=== PATIENT | male | born 1950 | race Caucasian/White ===

== ENCOUNTER 2019-09-20 10:41 | Day surgery (SDC) | payer OTHER ==
[2019-09-19 09:52] VITALS: BMI 26.6
[2019-09-20] MEDS ORDERED: Dexamethasone 20 MG/5 ML VIAL ONE (11:17)
[2019-09-20] MEDS ORDERED: Rocuronium Bromide 10 MG/ML (10ML VIAL) ONE (11:17)
[2019-09-20] MEDS ORDERED: Ondansetron PF 4 MG/2 ML Vial ONE (11:17)
[2019-09-20] MEDS ORDERED: PROPOFOL 200 MG/20 ML VIAL ONE (11:17)
[2019-09-20] MEDS ORDERED: Lidocaine 1% PF 5 ML VIAL ONE (11:17)
[2019-09-20] MEDS ORDERED: AFRIN NASAL MIST 15 ML BOT ONE ×2 (12:07→13:27)
[2019-09-20 12:58] LABS: Hemoglobin 14.9 g/dL (14.0-18.0)
[2019-09-20 13:17] LABS: Anion Gap 8 mmol/L (10-20); BUN (Urea Nitrogen) 30 mg/dL (8.4-25.7); Calc. Creatinine Clearance 96 mL/min (70-130); Calcium 9.1 mg/dL (7.8-10.44); Carbon Dioxide 28 mmol/L (23-31); Chloride 108 mmol/L (98-107); Estimated GFR-MDRD Greater than 90; Glucose 93 mg/dL (80-115); Potassium 3.8 mmol/L (3.5-5.1); Sodium 140 mmol/L (136-145)
[2019-09-20] MEDS ORDERED: Lidocaine 1% w/Epinephrine 1:100K 20 ML VIAL ONE (13:27)
[2019-09-20] MEDS ORDERED: Bacitracin Zinc Ointment 30 gm TUBE ONE (13:27)
[2019-09-20] MEDS ORDERED: Fentanyl 100 MCG/2 ML VIAL ONE (13:40)
--- NOTE | 2019-09-21 09:36 | OP ---
DATE OF PROCEDURE: 09/20/2019 PREOPERATIVE DIAGNOSES: 1. Chronic rhinosinusitis. 2. Nasal septal deviation. 3. Bilateral inferior turbinate hypertrophy. 4. Nasal obstruction. POSTOPERATIVE DIAGNOSES: 1. Chronic rhinosinusitis. 2. Nasal septal deviation. 3. Bilateral inferior turbinate hypertrophy. 4. Nasal obstruction. PROCEDURES PERFORMED: 1. Bilateral endoscopic sinus surgery, total ethmoidectomies with sphenoidotomy. 2. Bilateral endoscopic sinus surgery, maxillary antrostomies. 3. Bilateral endoscopic sinus surgery, frontal sinusotomies. 4. Nasal septoplasty. 5. Bilateral inferior turbinate submucosal resection. ESTIMATED BLOOD LOSS: 50 mL. COMPLICATIONS: None. ANESTHESIA: GETA. PROCEDURE IN DETAIL: NASAL SEPTOPLASTY AND BILATERAL INFERIOR TURBINATE RESECTION: Patient was taken to the operating room and placed supine on the table. General endotracheal anesthesia was obtained by the anesthesia staff. Then 1% lidocaine with 1:100,000 epinephrine was injected into the nasal septum as well as the inferior turbinates. The patient was prepped and draped in standard surgical fashion. The Afrin pledgets were then removed. A [place] incision was made on the left nasal septum. Submucoperichondrial dissection was performed bilaterally of the deviated portions of the septum, which included the maxillary crest and the crest deviation, as well as the mid portion of the septum. Cartilage and bony deviation were removed, leaving a generous caudal and dorsal strut. Any straight pieces of cartilage were then placed within the cartilage press, pressed, straightened, and then placed between the mucoperichondrial flaps, which were then closed using a 4-0 gut stitch. The inferior turbinates were then punctured with the submucosal Coblation machine, and 3 separate coblations were delivered to the anterior inferior portion of the inferior turbinates. Following this, the nasal cavity was irrigated. All debris was removed. An orogastric tube was placed. Gastric contents and [place] splints were then placed in the nasal cavity and sutured with a 3-0 silk stitch. BILATERAL ENDOSCOPIC SINUS SURGERY, TOTAL ETHMOIDECTOMY, AND MAXILLARY ANTROSTOMY: Following this, 1% lidocaine with 1:100,000 epinephrine were injected into the middle turbinates and lateral nasal wall bilaterally. Following this, the 0-degree endoscope was used to visualize the middle turbinate and the middle turbinate was medially fractured using a Turner elevator. Following this, the uncinate process was identified and was examined. The uncinate process was noted to be inflamed and laterally displaced bilaterally. Following this, a ball-ended probe was used to anteriorly fracture the uncinate process bilaterally. Following this, the 0-degree microdebrider and the up-biting [place]akes[place] forceps were used to remove the uncinate process bilaterally. Following this, the natural maxillary sinus ostia was identified with the 0-degree endoscope and the ball-ended probe. The natural maxillary ostia were then widened using a 40-degree microdebrider and the straight [place]akes[place] forceps bilaterally. Following this, the ethmoidal bulla was identified bilaterally. A 0-degree microdebrider was used to puncture the ethmoidal bulla on its medial and inferior aspect bilaterally. Following this, the 0-degree microdebrider and the up-biting Blakesley forceps were used to remove the ethmoidal bulla. Following this, the grand lamella was identified posterior to this area and was punctured using the 0-degree microdebrider bilaterally. Following this, the ethmoidal cells were opened from the posterior to the anterior using the 0-degree microdebrider, the 40-degree microdebrider and the up-biting [place]akesley forceps bilaterally. Following this, the 45-degree endoscope and the 40-degree microdebrider blade were used to further remove the anterior ethmoidal cells to the level of the frontal sinus recess bilaterally. Following this, the 0-degree endoscope was advanced through the previous ethmoidectomies, and the anterior wall of the sphenoid sinus was identified bilaterally. Using the 0-degree microdebrider, a puncture was made creating a sphenoidotomy into the sphenoid sinuses bilaterally. Polypoid tissue and bone were then removed using the 0-degree microdebrider in a medial and inferior direction widening the sphenoidotomies bilaterally. Following this, the 45-degree endoscope along with a 40-degree microdebrider blade were used to further open the anterior ethmoidal cells and expose the frontal sinus ostia bilaterally. Following this, the frontal sinus ostia was then widened using the 40-degree microdebrider blade and the up-biting [place]akes[place] forceps bilaterally. Following this, the nasal cavity was irrigated and NasoPore packing was then placed within the middle meatus. Sagrent splints were then placed and secured. The patient tolerated the procedure well. Job ID: [id number]
== END 2019-09-20 16:43 | disposition home or self-care (01) ==
LOC: SDC 10:41
PROVIDERS: ATTEND Otolaryngology Plastic Surgery within the Head & Neck
PROC: 09BS8ZZ Excision of Right Frontal Sinus, Via Natural or Artificial Opening Endoscopic (ICD-10-PCS; principal; 2019-09-20)
PROC: 099Q8ZZ Drainage of Right Maxillary Sinus, Via Natural or Artificial Opening Endoscopic (ICD-10-PCS; principal; 2019-09-20)
PROC: 09BM8ZZ Excision of Nasal Septum, Via Natural or Artificial Opening Endoscopic (ICD-10-PCS; principal; 2019-09-20)
PROC: 099R8ZZ Drainage of Left Maxillary Sinus, Via Natural or Artificial Opening Endoscopic (ICD-10-PCS; principal; 2019-09-20)
PROC: 09BL8ZZ Excision of Nasal Turbinate, Via Natural or Artificial Opening Endoscopic (ICD-10-PCS; principal; 2019-09-20)
PROC: 09BV8ZZ Excision of Left Ethmoid Sinus, Via Natural or Artificial Opening Endoscopic (ICD-10-PCS; principal; 2019-09-20)
PROC: 09BT8ZZ Excision of Left Frontal Sinus, Via Natural or Artificial Opening Endoscopic (ICD-10-PCS; principal; 2019-09-20)
PROC: 099W8ZZ Drainage of Right Sphenoid Sinus, Via Natural or Artificial Opening Endoscopic (ICD-10-PCS; principal; 2019-09-20)
PROC: 09BU8ZZ Excision of Right Ethmoid Sinus, Via Natural or Artificial Opening Endoscopic (ICD-10-PCS; principal; 2019-09-20)
PROC: 099X8ZZ Drainage of Left Sphenoid Sinus, Via Natural or Artificial Opening Endoscopic (ICD-10-PCS; principal; 2019-09-20)
DX: J32.4 Chronic pansinusitis (principal); J34.2 Deviated nasal septum; J34.3 Hypertrophy of nasal turbinates; J34.89 Other specified disorders of nose and nasal sinuses; I10 Essential (primary) hypertension; E78.5 Hyperlipidemia, unspecified; Z79.82 Long term (current) use of aspirin; Z79.899 Other long term (current) drug therapy
CPT/HCPCS: 36415; 80048; 85014; 85018; 93005; 93010; J1100; J2001; J2405; J2704; J3010